=== PATIENT | male | born 1970 | race Caucasian/White ===

== ENCOUNTER → 2017-07-28 | Outpatient (CLI) | payer OTHER ==
[~2017-07-28] VITALS: Ht 177.8 cm; Wt 85.6 kg
[~2017-07-28] MED LIST: CHLORHEXIDINE GLUCONATE 2 % 1 PACK (2 CLOTHS) TOPICAL PRN; INSULIN HUMAN REGULAR 1,000 UNITS/10 ML VIAL SQ PRN; LACTATED RINGER'S 1000 ML IV PRN; LIDOCAINE HCL 1% PF 5 ML AMPULE OTHER ONE; METOPROLOL TARTRATE 25 MG TAB PO PRN; MULT-267 PO; POVIDONE IODINE 5% (ANTISEPSIS KIT) 4 APPLICATIONS EACH NARE PRN; PROPOFOL 200 MG/20 ML AMP IV ONE; SODIUM CHLORID 0.9% 500 ML IV PRN
--- NOTE | 2017-07-28 13:38 | GIPROC ---
[facility] [address] [facility]. [facility], [address] EGD PROCEDURE REPORT EXAM DATE: 07/28/2017 PATIENT NAME: Riaz Monreal MR #: [id number] BIRTHDATE: 1970 ATTENDING: Denzel Aguilar MD ORDER #: [id number] MEDICAL SCHEDULER: Koko Hazel and Caro Mayorga STATUS: outpatient INDICATIONS: The patient is a 47 yr old male here for an EGD due to bloating PROCEDURE PERFORMED: EGD w/ hot bx forceps/cautery MEDICATIONS: None and Per Anesthesia. TOPICAL ANESTHETIC: none CONSENT: The patient understands the risks and benefits of the procedure and understands that these risks include, but are not limited to: sedation, allergic reaction, infection, perforation and/or bleeding. Alternative means of evaluation and treatment include, among others: physical exam, x-rays, and/or surgical intervention. The patient elects to proceed with this endoscopic procedure. medical equipment was checked for proper function. Hand hygiene and appropriate measures for infection prevention was taken. After the risks, benefits and alternatives of the procedure were thoroughly explained, Informed consent was verified, confirmed and timeout was successfully executed by the treatment team. The patient was anesthetized with topical anesthesia and the Pentax EG-[id number] endoscope was introduced through the mouth and advanced to the third portion of the duodenum. Retroflexion was performed and was normal The gastroscope was then slowly withdrawn and removed. GE jx was 45 cm. ESOPHAGUS: The esophagus was otherwise normal. STOMACH: The mucosa of the stomach appeared normal. DUODENUM: The duodenal mucosa appeared normal. Biopsies taken from 3rd portion to r/o sprue ADVERSE EVENTS: There were no complications. IMPRESSIONS: 1. GE jx was 45 cm 2. The esophagus was otherwise normal 3. The mucosa of the stomach appeared normal 4. Normal duodenal mucosa 5. Retroflexion was performed and was normal RECOMMENDATIONS: 1. Await biopsy results. Biopsy results will not be ready for 7-10 days. If you don't hear from us in two weeks, call our office for biopsy results. 2. Colonoscopy PATIENT CONDITION: stable DISPOSITION: Home REPEAT EXAM: NONE Denzel Aguilar MD eSigned: Denzel Aguilar MD 07/28/2017 1:38 PM cc: PATIENT NAME: Riaz Monreal MR#: [id number]
--- NOTE | 2017-07-28 13:44 | GIPROC ---
[facility] [address] [facility]. [facility], [address] COLONOSCOPY PROCEDURE REPORT EXAM DATE: 07/28/2017 PATIENT NAME: Riaz Monreal MR #: [id number] BIRTHDATE: 1970 ENDOSCOPIST: Denzel Aguilar MD ORDER #: [id number] SHAGGER: Caro Mayorga and Koko Hazel STATUS: outpatient INDICATIONS: The patient is a 47 yr old male here for a colonoscopy due to abdominal pain in the right lower quadrant PROCEDURE PERFORMED: Colonoscopy with biopsy MEDICATIONS: None and Per Anesthesia. PREP QUALITY: adequate PREP TYPE:GoLytely ESTIMATED BLOOD LOSS: None CONSENT: The patient understands the risks and benefits of the procedure and understands that these risks include, but are not limited to: sedation, allergic reaction, infection, perforation and/or bleeding. Alternative means of evaluation and treatment include, among others: physical exam, x-rays, and/or surgical intervention. The patient elects to proceed with this endoscopic procedure. medical equipment was checked for proper function. Hand hygiene and appropriate measures for infection prevention was taken. After the risks, benefits and alternatives of the procedure were thoroughly explained, Informed consent was verified, confirmed and timeout was successfully executed by the treatment team. A digital exam revealed no abnormalities of the rectum The Pentax [id number] endoscope was introduced through the anus and advanced to the terminal ileum which was intubated for a short distance. The instrument was then slowly withdrawn as the colon was fully examined. COLON FINDINGS: A smooth sessile polyp measuring 3 mm in size was found in the distal transverse colon. Multiple biopsies were performed using cold forceps. Moderate sized internal hemorrhoids were found. Retroflexed views revealed no abnormalities The scope was then completely withdrawn from the patient and the procedure terminated. PROCEDURE WITHDRAWAL TIME:16minutes ADVERSE EVENTS: There were no complications. IMPRESSIONS: 1. A sessile polyp was found in the distal transverse colon; multiple biopsies were performed using cold forceps 2. Moderate sized internal hemorrhoids 3. Retroflexed views revealed no abnormalities 4. Revealed no abnormalities of the rectum RECOMMENDATIONS: 1. Await biopsy results. Biopsy results will not be ready for 7-10 days. If you don't hear from us in two weeks, call our office for results. 2. High fiber diet RECALL: Return 3 years Colonoscopy Denzel Aguilar MD eSigned: Denzel Aguilar MD 07/28/2017 1:43 PM cc: PATIENT NAME: Riaz Monreal MR#: [id number]
[2017-07-28 14:18] VITALS: BP 153/87; PULSE 56; RESP 20; TEMP 97.2; O2SAT 100
== END ==
LOC: HEND 10:51
PROVIDERS: ATTEND Internal Medicine Gastroenterology
DX: R14.0 Abdominal distension (gaseous) (principal); R10.31 Right lower quadrant pain; K63.5 Polyp of colon; K64.8 Other hemorrhoids
CPT/HCPCS: 00740; 43239; 45380; 88305; J7120